=== PATIENT | female | born 1980 | race Hispanic/Latino ===

== ENCOUNTER 2023-04-15 11:28 | Emergency (ER) | payer MEDICAID ==
[~2023-04-15] VITALS: Ht 172.7 cm; Wt 81.6 kg
[~2023-04-15 11:28] MED LIST: AMOX1TAB16 PO; IBUP-2070 PO
[2023-04-15 12:05] LABS: APPEARANCE,URINE CLEAR (CLEAR); BILIRUBIN,URINE NEGATIVE (NEGATIVE); COLOR,URINE LIGHT-YELLOW (YELLOW); GLUCOSE, URINE (UA) NEGATIVE (NEGATIVE); KETONES,URINE NEGATIVE (NEGATIVE); LEUKOCYTE ESTERASE ,URINE NEGATIVE Leu/uL (NEGATIVE); NITRATE,URINE NEGATIVE (NEGATIVE); OCCULT BLOOD,URINE NEGATIVE (NEGATIVE); PROTEIN,URINE NEGATIVE (NEGATIVE); UROBILINOGEN,URINE 0.2 mg/dL (0.2-1.0)
[2023-04-15 12:07] LABS: BASOPHILS # (AUTO) 0.04 K/uL (0.00-0.20); BASOPHILS % (AUTO) 0.5 % (0.0-5.0); EOSINOPHILS # (AUTO) 0.14 K/uL (0.00-0.70); EOSINOPHILS % (AUTO) 1.6 % (0.0-8.0); IMMATURE GRANULOCYTE ABSOLUTE 0.02 K/uL (0-1); LYMPHOCYTES # (AUTO) 1.5 K/uL (1.0-4.8); LYMPHOCYTES % (AUTO) 16.5 % (21.0-51.0); MEAN CORPUSCULAR HGB CONC 31.4 g/dL (32.0-36.0); MEAN CORPUSCULAR VOLUME 73.3 fL (79-99); MONOCYTES # (AUTO) 0.4 K/uL (0.1-1.0); MONOCYTES % (AUTO) 4.9 % (3.0-13.0); NEUTROPHILS # (AUTO) 6.7 K/uL (1.8-7.7); NEUTROPHILS % (AUTO) 76.3 % (40.0-77.0); PLATELET COUNT (AUTO) 296 K/uL (130-400); RED BLOOD CELL COUNT(AUTO) 5.05 MIL/uL (4.00-5.50); RED CELL DISTRIBUTION WIDTH 16.3 % (11.0-15.5); WHITE BLOOD COUNT (AUTO) 8.8 K/uL (4.8-10.8)
[2023-04-15 12:13] LABS: HCG,QUALITATIVE URINE NEGATIVE (NEGATIVE)
[2023-04-15 12:15] LABS: ADD UA MICROSCOPIC NO
[2023-04-15 12:25] LABS: ALBUMIN 3.5 g/dL (3.5-5.0); BILIRUBIN,TOTAL 0.3 mg/dL (0.2-1.0); CREATININE 0.6 mg/dL (0.5-1.5); POTASSIUM 3.4 mmol/L (3.5-5.1); TOTAL PROTEIN, SERUM 7.5 g/dL (6.0-8.3)
[2023-04-15] MEDS ORDERED: IPRATROPIUM/ALBUTEROL SULFATE 3 ML SOLUTION IH ONE (12:30)
[2023-04-15] MEDS ORDERED: DEXAMETHASONE SOD PHOSPHATE 4 MG/ML 1ML VIAL IVP ONE (12:30)
[2023-04-15] MEDS ORDERED: KETOROLAC 15MG/ML VIAL (15MG/ML) IV ONE (12:30)
[2023-04-15 12:34] VITALS: PULSE 86; RESP 18
[2023-04-15] MEDS ORDERED: POTASSIUM BICARB/CIT AC 25 MEQ TABLET.EFF PO ONE (13:00)
[2023-04-15] MEDS ORDERED: IOHEXOL-350 75 ML VIAL IV ONE (13:41)
[2023-04-15 16:49] VITALS: BP 132/71; PULSE 88; RESP 18; O2SAT 98
== END 2023-04-15 16:54 | disposition home or self-care (01) ==
LOC: EDH 11:28
DX: N83.292 Other ovarian cyst, left side (principal); R10.30 Lower abdominal pain, unspecified; I10 Essential (primary) hypertension; E78.00 Pure hypercholesterolemia, unspecified; E11.9 Type 2 diabetes mellitus without complications; Z87.442 Personal history of urinary calculi
CPT/HCPCS: 99285; 74177; 96374; 76856; 71046; 96375; 80053; 85025; 81003; 81025; 36415; 94640; J1100; J1885; Q9967

== ENCOUNTER 2023-08-27 18:15 | Emergency (ER) | payer MEDICAID ==
[~2023-08-27] VITALS: Ht 160 cm; Wt 101.2 kg
[2023-08-27 18:17] VITALS: BP 103/69
[2023-08-27 19:37] LABS: BASOPHILS # (AUTO) 0.05 K/uL (0.00-0.20); BASOPHILS % (AUTO) 0.5 % (0.0-5.0); EOSINOPHILS # (AUTO) 0.93 K/uL (0.00-0.70); EOSINOPHILS % (AUTO) 8.5 % (0.0-8.0); HEMATOCRIT 36.7 % (36-48); IMMATURE GRANULOCYTE ABSOLUTE 0.05 K/uL (0-1); LYMPHOCYTES # (AUTO) 1.7 K/uL (1.0-4.8); LYMPHOCYTES % (AUTO) 15.5 % (21.0-51.0); MEAN CORPUSCULAR HEMOGLOBIN 23.4 pg (27.0-33.0); MEAN CORPUSCULAR HGB CONC 31.3 g/dL (32.0-36.0); MEAN CORPUSCULAR VOLUME 74.6 fL (79-99); MONOCYTES # (AUTO) 0.5 K/uL (0.1-1.0); MONOCYTES % (AUTO) 4.2 % (3.0-13.0); NEUTROPHILS # (AUTO) 7.8 K/uL (1.8-7.7); NEUTROPHILS % (AUTO) 70.8 % (40.0-77.0); PLATELET COUNT (AUTO) 271 K/uL (130-400); RED BLOOD CELL COUNT(AUTO) 4.92 MIL/uL (4.00-5.50); RED CELL DISTRIBUTION WIDTH 16.8 % (11.0-15.5)
[2023-08-27 19:48] LABS: CREATININE 0.6 mg/dL (0.5-1.5); POTASSIUM 3.5 mmol/L (3.5-5.1)
[2023-08-27 19:52] LABS: ALBUMIN 3.3 g/dL (3.5-5.0); BILIRUBIN,TOTAL 0.1 mg/dL (0.2-1.0); TOTAL PROTEIN, SERUM 7.1 g/dL (6.0-8.3)
[2023-08-27 20:49] LABS: INFLUENZA TYPE A Negative For Type A (NEGATIVE); INFLUENZA TYPE B Negative For Type B (NEGATIVE)
[2023-08-27] MEDS: SOLU-MEDROL 125MG VIAL IVP ONE (20:55)
[2023-08-27] MEDS: KETOROLAC 30MG VIAL (30MG/ML) IVP ONE (20:55)
[2023-08-27] MEDS: FAMOTIDINE 20MG VIAL IV ONE (20:55)
[2023-08-27] MEDS: METOCLOPRAMIDE 10 MG/2 ML VIAL IVP ONE (20:55)
[2023-08-27] MEDS: BENZONATATE 100 MG CAPSULE PO ONE (20:56)
[2023-08-27 21:00] LABS: SARS-CoV-2, RNA, NAAT POSITIVE SARS CoV-2 (NEGATIVE)
[2023-08-27] MEDS: ALBUTEROL 0.083% 2.5 MG/3 ML INH IH ONE (21:02)
[2023-08-27 21:06] VITALS: PULSE 79; RESP 20
[2023-08-27] MEDS ORDERED: AUD IH (21:12)
[2023-08-27] MEDS ORDERED: BENZ-39 PO (21:12)
== END 2023-08-27 21:21 | disposition home or self-care (01) ==
LOC: EDH 18:15
DX: U07.1 COVID-19 (principal); J45.909 Unspecified asthma, uncomplicated; J20.8 Acute bronchitis due to other specified organisms; I10 Essential (primary) hypertension; E11.9 Type 2 diabetes mellitus without complications; Z79.899 Other long term (current) drug therapy; Z98.890 Other specified postprocedural states
CPT/HCPCS: 99284; 96374; 96375; 71045; 87635; 80053; 85025; 87804 ×2; 36415; 94640; J2930; J1885; J2765; S0028; J3490